=== PATIENT | male | born 1980 | race Caucasian/White ===

== ENCOUNTER 2018-06-09 14:00 | Day surgery (SDC) | payer OTHER ==
[~2018-06-09] VITALS: Ht 180.3 cm; Wt 119.5 kg
[2018-06-09] MEDS ORDERED: TOPAMAX 100MG100 M1 PO (14:17)
[2018-06-09] MEDS ORDERED: EFFEXOR 75M75 MG/TAB PO (14:18)
[2018-06-09] MEDS ORDERED: NORCO 325 MG-51 TAB PO (14:19)
[2018-06-09] MEDS ORDERED: PRILOTC PO (14:20)
[2018-06-09] MEDS ORDERED: TYLENOL 500MG500 MG PO (14:20)
[2018-06-09 14:47] VITALS: BP 140/84; PULSE 57; TEMP 98.8
[2018-06-09 16:20] VITALS: BP 124/71; PULSE 65; TEMP 97.8
--- NOTE | 2018-06-09 16:20 | NUR ---
Pt to [facility] via cart from [employer]. Pt drowsy, but awakens easily. Pt ambulates to recliner with stand by assistance. Warm blanket given. Family in room. Pt denies pain or nausea. Juice, water and apple sauce given per request. Pt quickly falls asleep when not active in converstation. Will continue to monitor. Call light within reach.
[2018-06-09 16:35] VITALS: BP 122/74; PULSE 57
--- NOTE | 2018-06-09 16:35 | NUR ---
Pt continues to rest. Denies needs. Call light within reach.
[2018-06-09 16:50] VITALS: BP 127/71; PULSE 57
--- NOTE | 2018-06-09 16:50 | NUR ---
Pt continues to rest. Dozing on and off. Tolerating food and fluids without diffiuclties. Call light within reach.
[2018-06-09 17:05] VITALS: BP 118/76; PULSE 59
--- NOTE | 2018-06-09 17:05 | NUR ---
Pt continues to rest. Denies needs. Call light within reach.
[2018-06-09 17:20] VITALS: BP 113/68; PULSE 61
--- NOTE | 2018-06-09 17:20 | NUR ---
Discharge instructions reviewed. Pt and family voice understanding. IV site discontinued with all parts intact.
--- NOTE | 2018-06-09 17:35 | NUR ---
Pt escorted to private car via wheel chair. Pt accompanied home by his family.
== END 2018-06-09 17:35 | disposition home or self-care (01) ==
LOC: SDCO 14:00
DX: K21.9 Gastro-esophageal reflux disease without esophagitis (principal); K92.1 Melena; K64.1 Second degree hemorrhoids; Z79.899 Other long term (current) drug therapy; Z87.891 Personal history of nicotine dependence; R53.83 Other fatigue; G51.0 Bell's palsy
CPT/HCPCS: J2250; J3010; J7030